=== PATIENT | female | born 1985 | race Caucasian/White ===

== ENCOUNTER 2024-10-11 15:29 | Emergency (ER) | payer SELFPAY ==
[~2024-10-11] VITALS: Ht 162.5 cm; Wt 54.4 kg
[2024-10-11] MEDS ORDERED: methylPREDNISolone acetate 40 MG/ML VIAL IM ONE (15:55)
[2024-10-11] MEDS ORDERED: Ketorolac Tromethamine 30 MG/ML VIAL IM ONE (15:55)
[2024-10-11] MEDS ORDERED: tiZANidine Hydrochloride 4 MG TAB PO ONE (15:55)
[2024-10-11] MEDS ORDERED: Ondansetron Hydrochloride 4 MG TAB PO ONE (16:35)
[2024-10-11] MEDS ORDERED: Ondansetron4 MG PO (17:23)
[2024-10-11] MEDS ORDERED: NAPROSYN500 MG PO (17:23)
[2024-10-11] MEDS ORDERED: ZANAFLEX4 MG PO (17:23)
[2024-10-11] MEDS ORDERED: MEDROL DOSEPAK4 MG PO (17:23)
== END 2024-10-11 17:32 | disposition home or self-care (01) ==
LOC: ED 15:29
DX: S29.012A Strain of muscle and tendon of back wall of thorax, initial encounter (principal); R20.2 Paresthesia of skin; Z88.1 Allergy status to other antibiotic agents; Z88.2 Allergy status to sulfonamides; X50.1XXA Overexertion from prolonged static or awkward postures, initial encounter; Y93.89 Activity, other specified; Y92.89 Other specified places as the place of occurrence of the external cause; Y99.8 Other external cause status